=== PATIENT | female | born 1990 | race Caucasian/White ===

== ENCOUNTER 2019-12-01 04:05 | Inpatient (IN) | payer BC, OTHER ==
[~2019-12-01] VITALS: Ht 157.5 cm; Wt 65.0 kg
[2019-12-01 04:39] VITALS: BP 149/88
[2019-12-01 05:26] LABS: MICROSCOPIC INDICATED
[2019-12-01] MEDS ORDERED: ONDANSETRON 2MG/ML, 2ML ONE ×4 (05:34→21:16)
[2019-12-01] MEDS ORDERED: ACETAMINOPHEN 325 MG TABLET PO PRN (06:00)
[2019-12-01] MEDS ORDERED: ONDANSETRON 2MG/ML, 2ML IVPush ONE (06:00)
[2019-12-01] MEDS ORDERED: LACTATED RINGERS 1,000 ML IVBOLUS ONE (06:00)
[2019-12-01] MEDS ORDERED: LACTATED RINGERS 1,000 ML IV ONE (08:00)
[2019-12-01 11:21] LABS: BASOPHILS # (AUTO) 0.08 x10^3/uL (0-0.1); BASOPHILS % (AUTO) 1 % (0-1); EOSINOPHILS % (AUTO) 0 % (1-7); LYMPHOCYTES # (AUTO) 1.57 x10^3/uL (1-3.4); LYMPHOCYTES % (AUTO) 16 % (22-44); MD NO; MEAN CORPUSCULAR HEMOGLOBIN 32.6 pg (27.0-34.8); MEAN CORPUSCULAR HGB CONC 34.4 g/dL (32.4-35.8); MEAN CORPUSCULAR VOLUME 94.9 fL (80-100); MEAN PLATELET VOLUME 7.4 fL (7.4-10.4); MONOCYTES # (AUTO) 0.47 x10^3/uL (0.2-0.8); MONOCYTES % (AUTO) 5 % (2-9); NEUTROPHILS # (AUTO) 7.71 x10^3/uL (1.8-6.8); NEUTROPHILS % (AUTO) 78 % (42-75); PLATELET COUNT 144 x10^3/uL (130-400); RED BLOOD COUNT 4.51 x10^6/uL (3.82-5.3); RED CELL DISTRIBUTION WIDTH 13.3 % (9.6-15.2)
[2019-12-01 11:30] LABS: ALANINE AMINOTRANSFERASE 52 U/L (12-78); ALBUMIN 2.8 g/dL (3.4-5.0); ANION GAP 8 mmol/L (5-15); BILIRUBIN, DIRECT 0.1 mg/dL (0.1-0.2); CHLORIDE 109 mmol/L (98-107); CREATININE 0.71 mg/dL (0.55-1.02)
[2019-12-01 11:32] LABS: ALKALINE PHOSPHATASE 121 U/L (45-117); BILIRUBIN,TOTAL 0.5 mg/dL (0.2-1.0); TOTAL PROTEIN 6.4 g/dL (6.4-8.2)
[2019-12-01 11:32] LABS: CREATININE,URINE RANDOM 19.9 mg/dL
[2019-12-01] MEDS ORDERED: OXYTOCIN 30U/ 0.9% NaCL 500ML 500 ML IV ONE (12:10)
[2019-12-01] MEDS ORDERED: TERBUTALINE 1 MG/ML, 1ML SQ PRN (12:30)
[2019-12-01] MEDS ORDERED: FENTANYL PF 100 MCG/2ML IVPush PRN (12:30)
[2019-12-01] MEDS ORDERED: TERBUTALINE 1 MG/ML, 1ML IVPush PRN (12:30)
[2019-12-01] MEDS ORDERED: FENTANYL PF 100 MCG/2ML IV PRN (12:30)
[2019-12-01] MEDS: LACTATED RINGERS 1,000 ML IV SCH ×4 (12:38→18:32)
[2019-12-01] MEDS: D5%-LACTATED RINGERS 1,000 ML IV SCH ×2 (12:56→20:10)
[2019-12-01] MEDS ORDERED: FENTANYL/BUPIV./NS/PF 250 ML EPIDCONT SCH ×2 (12:57→14:10)
[2019-12-01] MEDS ORDERED: LIDOCAINE 1%, 20ML ONE (12:59)
[2019-12-01] MEDS ORDERED: NEWBORN KIT ONE (12:59)
[2019-12-01] MEDS ORDERED: OXYTOCIN 30U/ 0.9% NaCL 500ML 500 ML ONE (12:59)
[2019-12-01] MEDS ORDERED: MISOPROSTOL 200 MCG TABLET ONE (13:00)
[2019-12-01] MEDS ORDERED: ONDANSETRON ODT 4 MG ONE (13:16)
[2019-12-01] MEDS ORDERED: MAGNESIUM SULFATE PMX 4GM/100M 100 ML IVPB ONE (13:30)
[2019-12-01] MEDS ORDERED: FENTANYL PF 500 MCG, BUPIVACAINE/PF 0.5%, 30ML 62.5 ML in SODIUM CHLORIDE 0.9% 177.5 ML EPIDCONT SCH (13:30)
[2019-12-01] MEDS ORDERED: PREN1TAB60 PO (13:39)
[2019-12-01 13:40] VITALS: BP 158/91
[2019-12-01] MEDS ORDERED: ACYC-114 PO (13:40)
[2019-12-01] MEDS: ONDANSETRON ODT 4 MG PO PRN (13:52)
[2019-12-01] MEDS ORDERED: LACTATED RINGERS 1,000 ML IVBOLUS PRN (14:30)
[2019-12-01] MEDS ORDERED: OXYTOCIN 30U/ 0.9% NaCL 500ML 500 ML IV PRN (14:30)
[2019-12-01] MEDS ORDERED: EPHEDRINE 50 MG/ML, 1ML IVPush PRN (14:30)
[2019-12-01] MEDS ORDERED: BUPIVACAINE 0.25% ONE (14:53)
[2019-12-01] MEDS: MAGNESIUM SULF. PMX 20GM/500ML 500 ML IV SCH ×3 (15:46→22:55)
[2019-12-01] MEDS: ONDANSETRON 2MG/ML, 2ML IVPush PRN ×2 (16:00→21:17)
[2019-12-01 19:28] VITALS: BP 121/70
[2019-12-01] MEDS ORDERED: MAGNESIUM SULFATE PMX 4GM/100M 100 ML ONE (21:28)
[2019-12-01] MEDS ORDERED: METOCLOPRAMIDE 5 MG/ML, 2ML ONE (23:06)
[2019-12-01] MEDS: METOCLOPRAMIDE 5 MG/ML, 2ML IVPush PRN (23:08)
[2019-12-01] MEDS ORDERED: SODIUM CITRATE/CITRIC ACID 30 ML UDC PO PRN (23:30)
[2019-12-01] MEDS ORDERED: ALUMINUM/MAG/SIMETHICONE 30 ML UDC PO PRN (23:30)
[2019-12-02 00:22] VITALS: BP 126/81
[2019-12-02] MEDS ORDERED: OXYTOCIN 30U/ 0.9% NaCL 500ML 500 ML ONE (01:48)
[2019-12-02] MEDS ORDERED: ONDANSETRON 2MG/ML, 2ML ONE ×2 (03:37→09:31)
[2019-12-02] MEDS: ONDANSETRON 2MG/ML, 2ML IVPush PRN (03:39)
[2019-12-02] MEDS: D5%-LACTATED RINGERS 1,000 ML IV SCH (04:10)
[2019-12-02] MEDS: LACTATED RINGERS 1,000 ML IV SCH ×4 (04:10→20:10)
[2019-12-02] MEDS ORDERED: OXYTOCIN 30U/ 0.9% NaCL 500ML 500 ML IV SCH (04:56)
[2019-12-02] MEDS ORDERED: SIMETHICONE 80 MG CHEW TAB PO PRN (05:00)
[2019-12-02] MEDS ORDERED: ACETAMINOPHEN 325 MG TABLET PO PRN ×2 (05:00)
[2019-12-02] MEDS ORDERED: OXYcodone/APAP 5/325MG TABLET PO PRN ×2 (05:00)
[2019-12-02] MEDS ORDERED: CARBOPROST TROMETHAMINE 250 MCG/ML, 1ML IM PRN (05:00)
[2019-12-02] MEDS ORDERED: RHOGAM FROM BLOOD BANK 1 NOTE EA IM/IV ONE (05:00)
[2019-12-02] MEDS ORDERED: MISOPROSTOL 200 MCG TABLET PR PRN (05:00)
[2019-12-02 06:29] LABS: MEAN CORPUSCULAR HEMOGLOBIN 32.4 pg (27.0-34.8); MEAN CORPUSCULAR HGB CONC 34.4 g/dL (32.4-35.8); MEAN CORPUSCULAR VOLUME 94.3 fL (80-100); RED BLOOD COUNT 3.97 x10^6/uL (3.82-5.3); RED CELL DISTRIBUTION WIDTH 13.6 % (9.6-15.2)
[2019-12-02] MEDS ORDERED: OXYcodone/APAP 5/325MG TABLET ONE (06:31)
[2019-12-02] MEDS ORDERED: IBUPROFEN 600 MG TABLET ONE ×3 (06:31→21:36)
[2019-12-02 06:32] LABS: ALBUMIN 2.4 g/dL (3.4-5.0); ANION GAP 8 mmol/L (5-15); CALCIUM 6.8 mg/dL (8.5-10.1); CHLORIDE 106 mmol/L (98-107)
[2019-12-02] MEDS ORDERED: METOCLOPRAMIDE 5 MG/ML, 2ML ONE ×2 (06:33→12:08)
[2019-12-02 06:36] LABS: ALANINE AMINOTRANSFERASE 88 U/L (12-78); ALKALINE PHOSPHATASE 109 U/L (45-117); BILIRUBIN,TOTAL 1.2 mg/dL (0.2-1.0); TOTAL PROTEIN 5.6 g/dL (6.4-8.2)
[2019-12-02] MEDS: METOCLOPRAMIDE 5 MG/ML, 2ML IVPush PRN ×2 (06:37→12:10)
[2019-12-02] MEDS: IBUPROFEN 600 MG TABLET PO PRN ×3 (07:05→21:37)
[2019-12-02 07:14] LABS: MEAN PLATELET VOLUME 7.1 fL (7.4-10.4); PLATELET COUNT 98 x10^3/uL (130-400)
[2019-12-02 07:15] LABS: BASOPHILS % (AUTO) 0 % (0-1); EOSINOPHILS # (AUTO) 0.01 x10^3/uL (0-0.4); EOSINOPHILS % (AUTO) 0 % (1-7); LYMPHOCYTES % (AUTO) 4 % (22-44); MD SCAN; MONOCYTES % (AUTO) 4 % (2-9); NEUTROPHILS # (AUTO) 15.56 x10^3/uL (1.8-6.8); NEUTROPHILS % (AUTO) 93 % (42-75)
[2019-12-02] MEDS: PRENATAL VIT/IRON/FA 1 EACH TABLET PO SCH (08:11)
[2019-12-02] MEDS ORDERED: ONDANSETRON 2MG/ML, 2ML IVPush PRN (08:30)
[2019-12-02] MEDS: MAGNESIUM SULF. PMX 20GM/500ML 500 ML IV SCH (09:35)
[2019-12-02 13:43] LABS: BASOPHILS # (AUTO) 0.01 x10^3/uL (0-0.1); BASOPHILS % (AUTO) 0 % (0-1); EOSINOPHILS % (AUTO) 0 % (1-7); LYMPHOCYTES # (AUTO) 1.41 x10^3/uL (1-3.4); LYMPHOCYTES % (AUTO) 9 % (22-44); MD SCAN; MEAN CORPUSCULAR HEMOGLOBIN 32.5 pg (27.0-34.8); MEAN CORPUSCULAR HGB CONC 34.3 g/dL (32.4-35.8); MEAN CORPUSCULAR VOLUME 94.6 fL (80-100); MEAN PLATELET VOLUME 6.7 fL (7.4-10.4); MONOCYTES # (AUTO) 0.68 x10^3/uL (0.2-0.8); MONOCYTES % (AUTO) 5 % (2-9); NEUTROPHILS % (AUTO) 86 % (42-75); PLATELET COUNT 93 x10^3/uL (130-400); RED BLOOD COUNT 4.04 x10^6/uL (3.82-5.3); RED CELL DISTRIBUTION WIDTH 13.2 % (9.6-15.2)
[2019-12-02] MEDS ORDERED: ONDANSETRON ODT 4 MG ONE ×2 (15:30→19:28)
[2019-12-02] MEDS: ONDANSETRON ODT 4 MG PO PRN ×2 (15:32→19:32)
[2019-12-02] MEDS ORDERED: MAGNESIUM SULF. PMX 20GM/500ML 500 ML IV SCH (19:00)
[2019-12-02 19:08] VITALS: BP 154/102
[2019-12-02 19:24] VITALS: BP 144/100
[2019-12-02 19:39] VITALS: BP 140/95
[2019-12-02 22:44] VITALS: BP 135/98
[2019-12-03 01:04] VITALS: BP 143/99
[2019-12-03 03:24] VITALS: BP 144/94
[2019-12-03] MEDS ORDERED: IBUPROFEN 600 MG TABLET ONE (03:47)
[2019-12-03] MEDS: IBUPROFEN 600 MG TABLET PO PRN ×2 (03:48→10:17)
[2019-12-03] MEDS: LACTATED RINGERS 1,000 ML IV SCH ×3 (04:10→20:10)
[2019-12-03 07:17] LABS: MEAN CORPUSCULAR HEMOGLOBIN 32.5 pg (27.0-34.8); MEAN CORPUSCULAR HGB CONC 33.8 g/dL (32.4-35.8); MEAN CORPUSCULAR VOLUME 96.1 fL (80-100); RED BLOOD COUNT 4.03 x10^6/uL (3.82-5.3); RED CELL DISTRIBUTION WIDTH 13.8 % (9.6-15.2)
[2019-12-03 07:25] LABS: CHLORIDE 109 mmol/L (98-107)
[2019-12-03 07:26] LABS: ALBUMIN 2.2 g/dL (3.4-5.0); ANION GAP 5 mmol/L (5-15)
[2019-12-03 07:28] LABS: ALANINE AMINOTRANSFERASE 70 U/L (12-78); ALKALINE PHOSPHATASE 99 U/L (45-117); BILIRUBIN,TOTAL 0.5 mg/dL (0.2-1.0); CREATININE 0.67 mg/dL (0.55-1.02); TOTAL PROTEIN 5.2 g/dL (6.4-8.2)
[2019-12-03 07:37] LABS: CALCIUM 5.8 mg/dL (8.5-10.1)
[2019-12-03 07:47] LABS: BASOPHILS # (AUTO) 0.01 x10^3/uL (0-0.1); BASOPHILS % (AUTO) 0 % (0-1); EOSINOPHILS # (AUTO) 0.02 x10^3/uL (0-0.4); EOSINOPHILS % (AUTO) 0 % (1-7); LYMPHOCYTES # (AUTO) 1.46 x10^3/uL (1-3.4); LYMPHOCYTES % (AUTO) 14 % (22-44); MD SCAN; MEAN PLATELET VOLUME 6.6 fL (7.4-10.4); MONOCYTES # (AUTO) 0.48 x10^3/uL (0.2-0.8); MONOCYTES % (AUTO) 4 % (2-9); NEUTROPHILS # (AUTO) 8.88 x10^3/uL (1.8-6.8); NEUTROPHILS % (AUTO) 82 % (42-75); PLATELET COUNT 86 x10^3/uL (130-400)
[2019-12-03 08:23] VITALS: BP 133/81
[2019-12-03] MEDS: SODIUM CHLORIDE FLUSH 3ML SYRINGE IVF SCH ×2 (09:00→21:00)
[2019-12-03 09:30] VITALS: BP 136/92
[2019-12-03] MEDS: PRENATAL VIT/IRON/FA 1 EACH TABLET PO SCH (10:16)
[2019-12-03] MEDS: DOCUSATE 100 MG CAPSULE PO PRN ×2 (10:16→21:49)
[2019-12-03] MEDS: CALCIUM CARBONATE 500 MG TABLET PO SCH ×2 (10:20→21:49)
[2019-12-03 15:00] VITALS: BP 146/94
[2019-12-03 20:20] VITALS: BP 134/86
[2019-12-03] MEDS ORDERED: CALCIUM CARBONATE 500 MG TAB.CHEW ONE (21:18)
[2019-12-04] VITALS (7 sets, daily range): BP systolic 120–154; BP diastolic 84–98
[2019-12-04] MEDS: LACTATED RINGERS 1,000 ML IV SCH ×3 (04:10→20:10)
[2019-12-04] MEDS: IBUPROFEN 600 MG TABLET PO PRN (05:05)
[2019-12-04 06:30] LABS: BASOPHILS # (AUTO) 0.02 x10^3/uL (0-0.1); BASOPHILS % (AUTO) 0 % (0-1); EOSINOPHILS # (AUTO) 0.09 x10^3/uL (0-0.4); EOSINOPHILS % (AUTO) 1 % (1-7); LYMPHOCYTES # (AUTO) 1.32 x10^3/uL (1-3.4); LYMPHOCYTES % (AUTO) 16 % (22-44); MD NO; MEAN CORPUSCULAR HEMOGLOBIN 32.5 pg (27.0-34.8); MEAN CORPUSCULAR HGB CONC 34.6 g/dL (32.4-35.8); MEAN CORPUSCULAR VOLUME 93.9 fL (80-100); MEAN PLATELET VOLUME 6.9 fL (7.4-10.4); MONOCYTES % (AUTO) 5 % (2-9); NEUTROPHILS # (AUTO) 6.74 x10^3/uL (1.8-6.8); NEUTROPHILS % (AUTO) 79 % (42-75); PLATELET COUNT 100 x10^3/uL (130-400); RED BLOOD COUNT 3.87 x10^6/uL (3.82-5.3); RED CELL DISTRIBUTION WIDTH 13.6 % (9.6-15.2)
[2019-12-04 06:34] LABS: CHLORIDE 109 mmol/L (98-107)
[2019-12-04 06:43] LABS: ALANINE AMINOTRANSFERASE 49 U/L (12-78); ALBUMIN 2.4 g/dL (3.4-5.0); ALKALINE PHOSPHATASE 94 U/L (45-117); ANION GAP 9 mmol/L (5-15); BILIRUBIN,TOTAL 0.5 mg/dL (0.2-1.0); CALCIUM 8.3 mg/dL (8.5-10.1); CREATININE 0.72 mg/dL (0.55-1.02); TOTAL PROTEIN 5.6 g/dL (6.4-8.2)
[2019-12-04] MEDS: SODIUM CHLORIDE FLUSH 3ML SYRINGE IVF SCH ×2 (07:25→21:00)
[2019-12-04] MEDS: PRENATAL VIT/IRON/FA 1 EACH TABLET PO SCH (08:56)
[2019-12-04] MEDS: DOCUSATE 100 MG CAPSULE PO SCH ×2 (08:56→20:25)
[2019-12-04] MEDS: CALCIUM CARBONATE 500 MG TABLET PO SCH ×2 (08:56→21:05)
[2019-12-04] MEDS ORDERED: IBUPROFEN 800 MG TABLET ONE (11:43)
[2019-12-04] MEDS: IBUPROFEN 200 MG TABLET PO SCH ×3 (11:44→21:00)
[2019-12-05 01:00] VITALS: BP 123/86
[2019-12-05] MEDS: LACTATED RINGERS 1,000 ML IV SCH (04:10)
[2019-12-05] MEDS: IBUPROFEN 200 MG TABLET PO SCH ×2 (04:52→13:06)
[2019-12-05 05:00] VITALS: BP 135/86
[2019-12-05 06:14] LABS: BASOPHILS # (AUTO) 0.02 x10^3/uL (0-0.1); BASOPHILS % (AUTO) 0 % (0-1); EOSINOPHILS # (AUTO) 0.13 x10^3/uL (0-0.4); EOSINOPHILS % (AUTO) 2 % (1-7); LYMPHOCYTES # (AUTO) 1.36 x10^3/uL (1-3.4); LYMPHOCYTES % (AUTO) 21 % (22-44); MD NO; MEAN CORPUSCULAR HEMOGLOBIN 32.6 pg (27.0-34.8); MEAN CORPUSCULAR HGB CONC 34.3 g/dL (32.4-35.8); MEAN PLATELET VOLUME 7.1 fL (7.4-10.4); MONOCYTES # (AUTO) 0.26 x10^3/uL (0.2-0.8); MONOCYTES % (AUTO) 4 % (2-9); NEUTROPHILS # (AUTO) 4.77 x10^3/uL (1.8-6.8); NEUTROPHILS % (AUTO) 73 % (42-75); PLATELET COUNT 133 x10^3/uL (130-400); RED BLOOD COUNT 4.34 x10^6/uL (3.82-5.3); RED CELL DISTRIBUTION WIDTH 13.6 % (9.6-15.2)
[2019-12-05 06:20] LABS: ALANINE AMINOTRANSFERASE 77 U/L (12-78); ANION GAP 8 mmol/L (5-15); CALCIUM 9.1 mg/dL (8.5-10.1); CHLORIDE 106 mmol/L (98-107); CREATININE 0.77 mg/dL (0.55-1.02)
[2019-12-05 06:22] LABS: ALKALINE PHOSPHATASE 105 U/L (45-117); BILIRUBIN,TOTAL 0.5 mg/dL (0.2-1.0); TOTAL PROTEIN 6.7 g/dL (6.4-8.2)
[2019-12-05 07:44] VITALS: BP 126/76
[2019-12-05] MEDS: PRENATAL VIT/IRON/FA 1 EACH TABLET PO SCH (07:59)
[2019-12-05] MEDS: DOCUSATE 100 MG CAPSULE PO SCH (08:00)
[2019-12-05] MEDS: SODIUM CHLORIDE FLUSH 3ML SYRINGE IVF SCH (09:00)
[2019-12-05] MEDS: CALCIUM CARBONATE 500 MG TABLET PO SCH (09:45)
[2019-12-05] MEDS ORDERED: IBUP-1222 PO (12:39)
[2019-12-05] MEDS ORDERED: DOCU-131 PO (12:39)
== END 2019-12-05 13:47 | disposition home or self-care (01) | DRG 806 ==
LOC: LDOP 04:05 → LDIP 10:07 → OBSVTOIN 10:07 → 2NW 12-02 09:20 → 2NE 12-02 09:23 → 2NW 12-03 08:30
PROVIDERS: ADMIT Obstetrics & Gynecology; ATTEND Obstetrics & Gynecology
PROC: 10E0XZZ Delivery of Products of Conception, External Approach (ICD-10-PCS; principal; 2019-12-02)
PROC: 10907ZC Drainage of Amniotic Fluid, Therapeutic from Products of Conception, Via Natural or Artificial Opening (ICD-10-PCS; 2019-12-02)
PROC: 3E0R3BZ Introduction of Anesthetic Agent into Spinal Canal, Percutaneous Approach (ICD-10-PCS; 2019-12-02)
PROC: 00HU33Z Insertion of Infusion Device into Spinal Canal, Percutaneous Approach (ICD-10-PCS; 2019-12-02)
DX: O14.24 HELLP syndrome, complicating childbirth (principal); O98.32 Other infections with a predominantly sexual mode of transmission complicating childbirth; Z37.0 Single live birth; A60.00 Herpesviral infection of urogenital system, unspecified; E83.51 Hypocalcemia; O99.284 Endocrine, nutritional and metabolic diseases complicating childbirth; O71.82 Other specified trauma to perineum and vulva; Z3A.36 36 weeks gestation of pregnancy; Z85.828 Personal history of other malignant neoplasm of skin
CPT/HCPCS: 36415; J7121; S0020; 80053; 81001; 82248; 82570; 82803; 83735; 84156; 84450; 84550; 85025; 86592; 86850; 86870; 86900; 86922; 86923; 87086; G0378; J2405; J3010; Q0162; J2590; J2765; J3475; J7050; J7120